=== PATIENT | male | born 1955 | race Two or more races ===

== ENCOUNTER 2017-05-22 16:39 | Inpatient (IN) | payer SELFPAY ==
[~2017-05-22] VITALS: Ht 172.7 cm; Wt 76.3 kg
[2017-05-22] MEDS ORDERED: FAMOTIDINE 20 MG/2 ML VIAL IVP ONE (16:45)
--- NOTE | 2017-05-22 17:17 | RAD ---
Portable chest, 05/22/2017: History: Fall, injury Comparison is made to a study from 02/03/2015. There is moderate chronic elevation of the right hemidiaphragm. The heart is at the upper limits of normal in size. The pulmonary vascularity is normal. No acute infiltrates are seen. There is no evidence of pleural fluid or pneumothorax. Mild spurring is present in the spine. IMPRESSION: 1. Chronic elevation of the right hemidiaphragm. 2. No acute cardiopulmonary abnormality is detected.
[2017-05-22 17:21] LABS: BASO # 0.1 x10^3/uL (0.0-0.2); BASO % 1 % (0-3); EOS % 3 % (0-3); HEMATOCRIT 41.8 % (39.0-53.0); HEMOGLOBIN 14.4 g/dL (13.0-17.5); LYMPH # 2.4 x10^3/uL (1.0-4.8); LYMPH % 44 % (24-48); MEAN CORPUSCULAR HEMOGLOBIN 32 pg (25-35); MEAN CORPUSCULAR HGB CONC 34 g/dL (31-37); MEAN CORPUSCULAR VOLUME 94 fL (79-100); MONO % 4 % (0-9); NEUT % 47 % (31-73); PLATELET COUNT 119 x10^3/uL (140-400); RED BLOOD COUNT 4.44 x10^6/uL (4.30-5.70); RED CELL DISTRIBUTION WIDTH 16.5 % (11.5-14.5); WHITE BLOOD COUNT 5.4 x10^3/uL (4.0-11.0)
[2017-05-22 17:40] LABS: CALCIUM 8.3 mg/dL (8.5-10.1); CREATININE 0.7 mg/dL (0.7-1.3); POTASSIUM 3.7 mmol/L (3.5-5.1)
[2017-05-22] MEDS ORDERED: IV NORMAL SALINE 1000ML BAG 1,000 ML IV ONE (17:45)
[2017-05-22 17:46] LABS: ALBUMIN 3.6 g/dL (3.4-5.0); ALBUMIN/GLOBULIN RATIO 0.9 (1.0-1.7); TOTAL BILIRUBIN 1.2 mg/dL (0.2-1.0); TOTAL PROTEIN 7.6 g/dL (6.4-8.2)
--- NOTE | 2017-05-22 18:30 | EKG ---
[facility] [address] [place] [address] Test Date: 2017-05-22 Test Time: 16:50:30 Pat Name: ANNABEL LILLY Department: Room: 404 Gender: M Team Assistant: : 1955 Requested By: SAM AMARO Order Number: [id number] Reading MD: Chrissie Gan Measurements Intervals [place] Rate: 106 P: 22 MS: 180 QRS: -118 QRSD: 90 T: 39 QT: 330 QTc: 440 Interpretive Statements SINUS TACHYCARDIA ABNORMAL RIGHT SUPERIOR AXIS DEVIATION QRS(T) CONTOUR ABNORMALITY CONSISTENT WITH ANTEROLATERAL INFARCT PROBABLY OLD CONSISTENT WITH INFERIOR INFARCT PROBABLY OLD Electronically Signed On 05-26-2017 11:09:57 CDT by Chrissie Gan
--- NOTE | 2017-05-22 18:43 | PHYS DOC ---
Past Medical History Past Medical History: No Pertinent History Additional Past Medical Histor: PT IS POOR HISTORIAN Past Surgical History: No Surgical History Additional Past Surgical Histo: PT IS POOR HISTORIAN Alcohol Use: Heavy Drug Use: None Adult General Chief Complaint Chief Complaint: ALCOHOL INTOXICATION HPI HPI Patient is a 62 year old homeless female who presents after being found face for the side of the road with acute alcohol intoxication and chest pain. Patient is has been drinking heavily throughout the day. Patient without any obvious evidence of head injury, trauma or deformity states chest pain is worse palpation and movement. Patient is unable to quantify the amount of alcohol he is drinking today. His alert and oriented 3, denies abdominal pain. No vomiting witnessed. No other acute symptoms or complaints. Review of Systems Review of Systems Review symptoms as per history of present illness. All other review symptoms are negative. Current Medications Current Medications Current Medications Medications (Trade) Dose Ordered Sig/Yamilex Start Time Stop Time Status Last Admin Dose Admin Famotidine (Pepcid) 20 mg 1X ONCE 05/22/17 16:45 05/22/17 16:46 DC 05/22/17 18:06 20 MG Sodium Chloride 1,000 ml @ 1,000 mls/hr 1X ONCE 05/22/17 17:45 05/22/17 18:44 05/22/17 17:35 1,000 MLS/HR Allergies Allergies Allergies Coded Allergies Type Severity Reaction Last Updated Verified No Known Drug Allergies 02/03/15 No Physical Exam Physical Exam Constitutional: Well developed, well nourished, smells of EtOH. [] HENT: Normocephalic, atraumatic, bilateral external ears normal, oropharynx moist, no oral exudates, nose normal. [] Eyes: PERRLA, EOMI, conjunctiva normal, no discharge. [] Neck: Normal range of motion, no tenderness, supple, no stridor. [] Cardiovascular:Heart rate regular rhythm, no murmur [] Lungs & Thorax: Bilateral breath sounds clear to auscultation [] Abdomen: Bowel sounds normal, soft, mild epigastric tenderness[] Skin: Warm, dry, no erythema, no rash. [] Back: No tenderness, no CVA tenderness. [] Extremities: No tenderness, no cyanosis, no clubbing, ROM intact, no edema. [] Neurologic: Alert and oriented X 3, normal motor function, normal sensory function, no focal deficits noted. [] Psychologic: Affect flat. [] Current Patient Data Vital Signs Vital Signs Date Time Temp Pulse Resp B/P (MAP) Pulse Ox O2 Delivery O2 Flow Rate FiO2 05/22/17 16:59 97.8 108 18 130/97 (108) 88 Room Air 97.8 Lab Values Laboratory Tests Test 05/22/17 17:14 White Blood Count 5.4 x10^3/uL (4.0-11.0) Red Blood Count 4.44 x10^6/uL (4.30-5.70) Hemoglobin 14.4 g/dL (13.0-17.5) Hematocrit 41.8 % (39.0-53.0) Mean Corpuscular Volume 94 fL (79-100) Mean Corpuscular Hemoglobin 32 pg (25-35) Mean Corpuscular Hemoglobin Concent 34 g/dL (31-37) Red Cell Distribution Width 16.5 % (11.5-14.5) H Platelet Count 119 x10^3/uL (140-400) L Neutrophils (%) (Auto) 47 % (31-73) Lymphocytes (%) (Auto) 44 % (24-48) Monocytes (%) (Auto) 4 % (0-9) Eosinophils (%) (Auto) 3 % (0-3) Basophils (%) (Auto) 1 % (0-3) Neutrophils # (Auto) 2.6 x10^3uL (1.8-7.7) Lymphocytes # (Auto) 2.4 x10^3/uL (1.0-4.8) Monocytes # (Auto) 0.2 x10^3/uL (0.0-1.1) Eosinophils # (Auto) 0.2 x10^3/uL (0.0-0.7) Basophils # (Auto) 0.1 x10^3/uL (0.0-0.2) Sodium Level 143 mmol/L (136-145) Potassium Level 3.7 mmol/L (3.5-5.1) Chloride Level 105 mmol/L (98-107) Carbon Dioxide Level 26 mmol/L (21-32) Anion Gap 12 (6-14) Blood Urea Nitrogen 4 mg/dL (8-26) L Creatinine 0.7 mg/dL (0.7-1.3) Estimated GFR (Cockcroft-Gault) 115.0 BUN/Creatinine Ratio 6 (6-20) Glucose Level 117 mg/dL (70-99) H Calcium Level 8.3 mg/dL (8.5-10.1) L Total Bilirubin 1.2 mg/dL (0.2-1.0) H Aspartate Amino Transferase (AST) 124 U/L (15-37) H Alanine Aminotransferase (ALT) 108 U/L (16-63) H Alkaline Phosphatase 119 U/L (46-116) H Troponin I Quantitative < 0.017 ng/mL (0.000-0.055) Total Protein 7.6 g/dL (6.4-8.2) Albumin 3.6 g/dL (3.4-5.0) Albumin/Globulin Ratio 0.9 (1.0-1.7) L Ethyl Alcohol Level 441 mg/dL (0-10) *H Laboratory Tests 05/22/17 17:14 Laboratory Tests 05/22/17 17:14 EKG EKG [EKG: Sinus tach, rate 106, no acute ST-T wave changes,: ] Radiology/Procedures Radiology/Procedures []Chest x-ray: No acute elevation of right hemidiaphragm, no acute cardiopulmonary disease per radiology report. Course & Med Decision Making Course & Med Decision Making Pertinent Labs and Imaging studies reviewed. (See chart for details) [Acute alcohol intoxication with report of chest pain. Patient's EKG, troponin are nonacute. Patient's alcohol is greater than 440. IV fluids and Pepcid given. Will admit to the hospitalist service for further evaluation and treatment.] Dragon Disclaimer Dragon Disclaimer This electronic medical record was generated, in whole or in part, using a voice recognition dictation system. Departure Departure Impression: Primary Impression: Acute alcohol intoxication Disposition: ADMITTED INPATIENT Admitting Physician: Jayna Freeman Condition: STABLE Referrals: NO PCP (PCP) SAM AMARO DO May 22, 2017 18:43
[2017-05-22] MEDS ORDERED: HALOPERIDOL LACTATE 5 MG/ML VIAL. IVP PRN (18:45)
[2017-05-22] MEDS ORDERED: ONDANSETRON PF 4 MG/2 ML VIAL. IV PRN (18:45)
[2017-05-22] MEDS ORDERED: diphenhydrAMINE 50 MG/ML VIAL IVP PRN (18:45)
[2017-05-22] MEDS ORDERED: LORazepam 1 MG TABLET PO PRN (18:45)
[2017-05-22] MEDS: IV NORMAL SALINE 1000ML BAG 1,000 ML IV SCH (19:05)
[2017-05-22 20:21] VITALS: BP 132/60
[2017-05-22] MEDS: MULTIVIT INFUSN,ADULT 4,VIT K 10 ML, THIAMINE 100 MG, FOLIC ACID 1 MG in IV NORMAL SALI... IV SCH (20:31)
[2017-05-22] MEDS: FAMOTIDINE 20 MG/2 ML VIAL IVP SCH (21:00)
[2017-05-22] MEDS ORDERED: traMADol 50 MG TABLET PO PRN (21:30)
[2017-05-22] MEDS: LIDOCAINE (700MG/PATCH) PATCH. TD SCH (22:09)
[2017-05-23] MEDS: IV NORMAL SALINE 1000ML BAG 1,000 ML IV SCH ×3 (01:18→14:38)
[2017-05-23 03:08] VITALS: BP 106/61
[2017-05-23 04:38] LABS: BASO % 1 % (0-3); EOS % 3 % (0-3); HEMATOCRIT 35.3 % (39.0-53.0); HEMOGLOBIN 12.7 g/dL (13.0-17.5); INR 1.4 (0.8-1.1); LYMPH # 1.5 x10^3/uL (1.0-4.8); LYMPH % 48 % (24-48); MEAN CORPUSCULAR HEMOGLOBIN 33 pg (25-35); MEAN CORPUSCULAR HGB CONC 36 g/dL (31-37); MEAN CORPUSCULAR VOLUME 93 fL (79-100); MONO % 6 % (0-9); NEUT % 42 % (31-73); PLATELET COUNT 77 x10^3/uL (140-400); PROTHROMBIN TIME PATIENT 16.7 SEC (11.7-14.0); RED BLOOD COUNT 3.81 x10^6/uL (4.30-5.70); RED CELL DISTRIBUTION WIDTH 16.5 % (11.5-14.5); WHITE BLOOD COUNT 3.2 x10^3/uL (4.0-11.0)
[2017-05-23 04:51] LABS: ALBUMIN/GLOBULIN RATIO 0.9 (1.0-1.7); CALCIUM 7.4 mg/dL (8.5-10.1); CREATININE 0.6 mg/dL (0.7-1.3); GFR 137.4; POTASSIUM 3.8 mmol/L (3.5-5.1); TOTAL BILIRUBIN 0.7 mg/dL (0.2-1.0); TOTAL PROTEIN 6.4 g/dL (6.4-8.2)
[2017-05-23 04:56] LABS: CHOLESTEROL/HDL RATIO 2.7
[2017-05-23 07:00] VITALS: BP 107/66
--- NOTE | 2017-05-23 08:23 | PDOC1 ---
History and Physical Date of Admission Date of Admission DATE: 05/22/17 TIME: 8pm Identification/Chief Complaint Chief Complaint LATE ENTRY, PT seen 9. Problems: History of Present Illness History of Present Illness Mr Case is a 62 year old homeless male, admit very intoxicated, story changed a few time. The ER reports he was found on side of the road with chest pain. Complains of abdomen pain to me. Drinking heavily, tequila all day, no fall, no injury, but marked abdomen pain, right chest wall to palpation, he is able to ambulate, and was eating clears at 9pm on oriented 11/01, but story gets confusing multiple times, he requests Xrays of his liver, to to "liver pain" Past Medical History Cardiovascular: No pertinent hx Pulmonary: No pertinent hx GI: No pertinent hx Heme/Onc: No pertinent hx Hepatobiliary: No pertinent hx Renal/: No pertinent hx Family History Family History: Alcohol Abuse Social History ALCOHOL: heavy Drugs: None Current Medications Current Medications Current Medications Famotidine (Pepcid) 20 mg 1X ONCE IVP Last administered on 05/22/17 18:06; Start 05/22/17 at 16:45; Stop 05/22/17 at 16:46; Status DC Sodium Chloride 1,000 ml @ 1,000 mls/hr 1X ONCE IV Last administered on 17:35; Start 05/22/17 at 17:45; Stop 05/22/17 at 18:46; Status DC Ondansetron HCl (Zofran) 4 mg PRN Q8HRS PRN IV NAUSEA/VOMITING; Start 05/22/17 at 18:45; Stop 05/23/17 at 18:44 Sodium Chloride 1,000 ml @ 150 mls/hr Q6H40M IV Last administered on 19:05; Start 05/22/17 at 18:38; Stop 05/23/17 at 18:37 Famotidine (Pepcid) 20 mg BID IVP ; Start 05/22/17 at 21:00 Multivitamins 10 ml/Thiamine HCl 100 mg/Folic Acid 1 mg/Sodium Chloride 1,011.2 ml @ 100 mls/ hr DAILY IV Last administered on 05/22/17 20:31; Start at 19:00; Stop 05/28/17 at 18:59 Folic Acid (Folic Acid) 1 mg DAILY PO ; Start 05/23/17 at 09:00 Lorazepam (Ativan) 4 mg PRN Q1HR PRN PO For CIWA 8-14; Start 05/22/17 at 18:45 Lorazepam (Ativan) 2 mg PRN Q1HR PRN IV For CIWA 8-14 Last administered on 05/22 20:32; Start 05/22/17 at 18:45 Lorazepam (Ativan) 4 mg PRN Q1HR PRN IV For CIWA 15 or greater Last administered on 05/22/17 22:08; Start 05/22/17 at 18:45 Haloperidol Lactate (Haldol) 5 mg PRN Q4HRS PRN IVP Hallucinatns,Confusn, Delirium; Start 05/22/17 at 18:45 Diphenhydramine HCl (Benadryl) 25 mg PRN Q15MIN PRN IVP EPS symptoms 2'Haldol admin; Start 05/22/17 at 18:45 Lidocaine (Lidoderm) 1 patch DAILY TD Last administered on 05/22/17 22:09; Start 05/22/17 at 21:30 Tramadol HCl (Ultram) 50 mg PRN Q6HRS PRN PO PAIN; Start 05/22/17 at 21:30 Allergies Allergies: Coded Allergies: No Known Drug Allergies (Unverified , 02/03/15) ROS General: YES: Appetite, No: Chills, Night Sweats, Fatigue, Malaise, Other PSYCHOLOGICAL ROS: No: Anxiety, Behavioral Disorder, Concentration difficultie , Decreased libido, Depression, Disorientation, Hallucinations, Hostility, Irritablity, Memory difficulties, Mood Swings, Obsessive thoughts, Other Eyes: No Blurry vision, No Decreased vision, No Double vision, No Dry eyes, No Excessive tearing, No Eye Pain, No Itchy Eyes, No Loss of vision, No Photophobia , No Scotomata, No Uses contacts, No Uses glasses, No Other HEENT: No: Heacaches, Visual Changes, Hearing change, Nasal congestion, Nasal discharge, Oral lesions, Sinus pain, Sore Throat, Epistaxis, Sneezing, Snoring, Tinnitus, Vertigo, Vocal changes, Other Respiratory: No: Cough, Hemoptysis, Orthopnea, Pleuritic Pain, Shortness of breath, SOB with excertion, Sputum Changes, Stridor, Tachypnea, Wheezing, Other Cardiovascular: No Chest Pain, No Palpitations, No Orthopnea, No Paroxysmal Noc. Dyspnea, No Edema, No Lt Headedness, No Other Gastrointestinal: Yes Nausea, Yes Abdominal Pain Genitourinary: No Dysuria, No Frequency, No Incontinence, No Hematuria, No Retention, No Discharge, No Urgency, No Pain, No Flank Pain, No Other, No , No , No , No , No , No , No Musculoskeletal: Yes Joint Stiffness, Yes Muscle Pain (abdomen), No Gait Disturbance, No Joint Pain, No Joint Swelling, No Muscular Weakness, No Pain In:, No Swelling In:, No Other Neurological: No Behavorial Changes, No Bowel/Bladder ControlChng, No Confusion , No Dizziness, No Gait Disturbance, No Headaches, No Impaired Coord/balance, No Memory Loss, No Numbness/Tingling, No Seizures, No Speech Problems, No Tremors, No Visual Changes, No Weakness, No Other Skin: No Dry Skin, No Eczema, No Hair Changes, No Lumps, No Mole Changes, No Mottling, No Nail Changes, No Pruritus, No Rash, No Skin Lesion Changes, No Other, No Acne Physical Exam General: Alert, Cooperative HEENT: Atraumatic, PERRLA Lungs: Clear to auscultation Breasts: Normal, No skin or nipple changes Abdomen: Normal bowel sounds (tender mid abdomen, muscle wall tender) Rectal Exam: not examined Extremities: No clubbing, No edema Skin: No rashes, No significant lesion Neuro: Normal tone, Sensation intact, Other (confused, intoxicated) Psych/Mental Status: Other Vitals Vitals Vital Signs Date Time Temp Pulse Resp B/P (MAP) Pulse Ox O2 Delivery O2 Flow Rate FiO2 05/23/17 07:00 98.5 72 18 107/66 (80) 92 Room Air 98.5 Labs Labs Laboratory Tests Test 05/22/17 17:14 05/23/17 03:29 White Blood Count 5.4 x10^3/uL (4.0-11.0) 3.2 x10^3/uL (4.0-11.0) Red Blood Count 4.44 x10^6/uL (4.30-5.70) 3.81 x10^6/uL (4.30-5.70) Hemoglobin 14.4 g/dL (13.0-17.5) 12.7 g/dL (13.0-17.5) Hematocrit 41.8 % (39.0-53.0) 35.3 % (39.0-53.0) Mean Corpuscular Volume 94 fL (79-100) 93 fL (79-100) Mean Corpuscular Hemoglobin 32 pg (25-35) 33 pg (25-35) Mean Corpuscular Hemoglobin Concent 34 g/dL (31-37) 36 g/dL (31-37) Red Cell Distribution Width 16.5 % (11.5-14.5) 16.5 % (11.5-14.5) Platelet Count 119 x10^3/uL (140-400) 77 x10^3/uL (140-400) Neutrophils (%) (Auto) 47 % (31-73) 42 % (31-73) Lymphocytes (%) (Auto) 44 % (24-48) 48 % (24-48) Monocytes (%) (Auto) 4 % (0-9) 6 % (0-9) Eosinophils (%) (Auto) 3 % (0-3) 3 % (0-3) Basophils (%) (Auto) 1 % (0-3) 1 % (0-3) Neutrophils # (Auto) 2.6 x10^3uL (1.8-7.7) 1.3 x10^3uL (1.8-7.7) Lymphocytes # (Auto) 2.4 x10^3/uL (1.0-4.8) 1.5 x10^3/uL (1.0-4.8) Monocytes # (Auto) 0.2 x10^3/uL (0.0-1.1) 0.2 x10^3/uL (0.0-1.1) Eosinophils # (Auto) 0.2 x10^3/uL (0.0-0.7) 0.1 x10^3/uL (0.0-0.7) Basophils # (Auto) 0.1 x10^3/uL (0.0-0.2) 0.0 x10^3/uL (0.0-0.2) Sodium Level 143 mmol/L (136-145) 147 mmol/L (136-145) Potassium Level 3.7 mmol/L (3.5-5.1) 3.8 mmol/L (3.5-5.1) Chloride Level 105 mmol/L (98-107) 110 mmol/L (98-107) Carbon Dioxide Level 26 mmol/L (21-32) 29 mmol/L (21-32) Anion Gap 12 (6-14) 8 (6-14) Blood Urea Nitrogen 4 mg/dL (8-26) 4 mg/dL (8-26) Creatinine 0.7 mg/dL (0.7-1.3) 0.6 mg/dL (0.7-1.3) Estimated GFR (Cockcroft-Gault) 115.0 137.4 BUN/Creatinine Ratio 6 (6-20) 7 (6-20) Glucose Level 117 mg/dL (70-99) 84 mg/dL (70-99) Calcium Level 8.3 mg/dL (8.5-10.1) 7.4 mg/dL (8.5-10.1) Total Bilirubin 1.2 mg/dL (0.2-1.0) 0.7 mg/dL (0.2-1.0) Aspartate Amino Transf (AST/SGOT) 124 U/L (15-37) 93 U/L (15-37) Alanine Aminotransferase (ALT/SGPT) 108 U/L (16-63) 83 U/L (16-63) Alkaline Phosphatase 119 U/L (46-116) 90 U/L (46-116) Troponin I Quantitative < 0.017 ng/mL (0.000-0.055) Total Protein 7.6 g/dL (6.4-8.2) 6.4 g/dL (6.4-8.2) Albumin 3.6 g/dL (3.4-5.0) 3.0 g/dL (3.4-5.0) Albumin/Globulin Ratio 0.9 (1.0-1.7) 0.9 (1.0-1.7) Ethyl Alcohol Level 441 mg/dL (0-10) Prothrombin Time 16.7 SEC (11.7-14.0) Prothromb Time International Ratio 1.4 (0.8-1.1) Triglycerides Level 45 mg/dL (0-150) Cholesterol Level 162 mg/dL (0-200) LDL Cholesterol, Calculated 92 mg/dL (0-100) VLDL Cholesterol, Calculated 9 mg/dL (0-40) Non-HDL Cholesterol Calculated 101 mg/dL (0-129) HDL Cholesterol 61 mg/dL (40-60) Cholesterol/HDL Ratio 2.7 Laboratory Tests Test 05/22/17 17:14 05/23/17 03:29 White Blood Count 5.4 x10^3/uL (4.0-11.0) 3.2 x10^3/uL (4.0-11.0) Red Blood Count 4.44 x10^6/uL (4.30-5.70) 3.81 x10^6/uL (4.30-5.70) Hemoglobin 14.4 g/dL (13.0-17.5) 12.7 g/dL (13.0-17.5) Hematocrit 41.8 % (39.0-53.0) 35.3 % (39.0-53.0) Mean Corpuscular Volume 94 fL (79-100) 93 fL (79-100) Mean Corpuscular Hemoglobin 32 pg (25-35) 33 pg (25-35) Mean Corpuscular Hemoglobin Concent 34 g/dL (31-37) 36 g/dL (31-37) Red Cell Distribution Width 16.5 % (11.5-14.5) 16.5 % (11.5-14.5) Platelet Count 119 x10^3/uL (140-400) 77 x10^3/uL (140-400) Neutrophils (%) (Auto) 47 % (31-73) 42 % (31-73) Lymphocytes (%) (Auto) 44 % (24-48) 48 % (24-48) Monocytes (%) (Auto) 4 % (0-9) 6 % (0-9) Eosinophils (%) (Auto) 3 % (0-3) 3 % (0-3) Basophils (%) (Auto) 1 % (0-3) 1 % (0-3) Neutrophils # (Auto) 2.6 x10^3uL (1.8-7.7) 1.3 x10^3uL (1.8-7.7) Lymphocytes # (Auto) 2.4 x10^3/uL (1.0-4.8) 1.5 x10^3/uL (1.0-4.8) Monocytes # (Auto) 0.2 x10^3/uL (0.0-1.1) 0.2 x10^3/uL (0.0-1.1) Eosinophils # (Auto) 0.2 x10^3/uL (0.0-0.7) 0.1 x10^3/uL (0.0-0.7) Basophils # (Auto) 0.1 x10^3/uL (0.0-0.2) 0.0 x10^3/uL (0.0-0.2) Sodium Level 143 mmol/L (136-145) 147 mmol/L (136-145) Potassium Level 3.7 mmol/L (3.5-5.1) 3.8 mmol/L (3.5-5.1) Chloride Level 105 mmol/L (98-107) 110 mmol/L (98-107) Carbon Dioxide Level 26 mmol/L (21-32) 29 mmol/L (21-32) Anion Gap 12 (6-14) 8 (6-14) Blood Urea Nitrogen 4 mg/dL (8-26) 4 mg/dL (8-26) Creatinine 0.7 mg/dL (0.7-1.3) 0.6 mg/dL (0.7-1.3) Estimated GFR (Cockcroft-Gault) 115.0 137.4 BUN/Creatinine Ratio 6 (6-20) 7 (6-20) Glucose Level 117 mg/dL (70-99) 84 mg/dL (70-99) Calcium Level 8.3 mg/dL (8.5-10.1) 7.4 mg/dL (8.5-10.1) Total Bilirubin 1.2 mg/dL (0.2-1.0) 0.7 mg/dL (0.2-1.0) Aspartate Amino Transf (AST/SGOT) 124 U/L (15-37) 93 U/L (15-37) Alanine Aminotransferase (ALT/SGPT) 108 U/L (16-63) 83 U/L (16-63) Alkaline Phosphatase 119 U/L (46-116) 90 U/L (46-116) Troponin I Quantitative < 0.017 ng/mL (0.000-0.055) Total Protein 7.6 g/dL (6.4-8.2) 6.4 g/dL (6.4-8.2) Albumin 3.6 g/dL (3.4-5.0) 3.0 g/dL (3.4-5.0) Albumin/Globulin Ratio 0.9 (1.0-1.7) 0.9 (1.0-1.7) Ethyl Alcohol Level 441 mg/dL (0-10) Prothrombin Time 16.7 SEC (11.7-14.0) Prothromb Time International Ratio 1.4 (0.8-1.1) Triglycerides Level 45 mg/dL (0-150) Cholesterol Level 162 mg/dL (0-200) LDL Cholesterol, Calculated 92 mg/dL (0-100) VLDL Cholesterol, Calculated 9 mg/dL (0-40) Non-HDL Cholesterol Calculated 101 mg/dL (0-129) HDL Cholesterol 61 mg/dL (40-60) Cholesterol/HDL Ratio 2.7 VTE Prophylaxis Ordered VTE Prophylaxis Devices: Yes VTE Pharmacological Prophylaxi: Yes Assessment/Plan Assessment/Plan Acute abd pain, NOS, 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
[2017-05-23] MEDS ORDERED: predniSONE 10 MG TABLET PO ONE (08:30)
[2017-05-23] MEDS: MULTIVIT INFUSN,ADULT 4,VIT K 10 ML, THIAMINE 100 MG, FOLIC ACID 1 MG in IV NORMAL SALI... IV SCH (08:44)
[2017-05-23] MEDS: LIDOCAINE (700MG/PATCH) PATCH. TD SCH (08:45)
[2017-05-23] MEDS: FAMOTIDINE 20 MG/2 ML VIAL IVP SCH (08:45)
[2017-05-23] MEDS: FOLIC ACID 1 MG TABLET. PO SCH (08:45)
--- NOTE | 2017-05-23 09:52 | EKG ---
[facility] [address] [place] [address] Test Date: 2017-05-23 Test Time: 09:50:09 Pat Name: ANNABEL LILLY Department: Room: 404 Gender: M Kst Operator: KEY : 1955 Requested By: RADHA JEAN-BAPTISTE Order Number: [id number] Reading MD: Chrissie Gan Measurements Intervals [place] Rate: 76 P: 0 NM: 184 QRS: -20 QRSD: 82 T: 24 QT: 392 QTc: 445 Interpretive Statements SINUS RHYTHM LEFTWARD AXIS QRS(T) CONTOUR ABNORMALITY CONSISTENT WITH INFERIOR INFARCT PROBABLY OLD ABNORMAL ECG Electronically Signed On 05-23-2017 10:41:24 CDT by Chrissie Gan
[2017-05-23 10:30] LABS: CKMB MASS 1.4 ng/mL (0.0-3.6)
[2017-05-23 11:07] VITALS: BP 104/63
[2017-05-23] MEDS ORDERED: hydrALAZINE 20 MG/ML VIAL. IVP PRN (11:45)
[2017-05-23] MEDS ORDERED: traMADol 50 MG TABLET PO PRN (11:45)
[2017-05-23] MEDS ORDERED: ONDANSETRON PF 4 MG/2 ML VIAL. IV PRN (11:45)
[2017-05-23] MEDS ORDERED: DOCUSATE SODIUM 100 MG CAPSULE. PO PRN (11:45)
[2017-05-23] MEDS ORDERED: ACETAMINOPHEN 325 MG TABLET. PO PRN (11:45)
--- NOTE | 2017-05-23 11:50 | PDOC ---
PROGRESS NOTES Chief Complaint Chief Complaint Acute abd pain, 2/2 fatty liver with alcoholism likely alcoholism Toxic encephalopathy with ETOH EtOH intoxication and abuse, CIWS protocol for withdrawl elevated Transaminitis 2/2 alcoholic hepatitis likely pancytopenia with alcoholism plan: gi consult abd US pending check hepatitis panel ii MILD st ELevation, repeat EKG, pretty similar to 2015, CE neg add fa, vitb1 no need lovenox given PLT low ativan prn educated no etoh History of Present Illness History of Present Illness ROS: no fever, chills, sob or chest pain no chest pain, still c/o RUQ pain denies drinking daily, but likely very often with bl hands tremor pancytopenia with alcoholism Vitals Vitals Vital Signs Date Time Temp Pulse Resp B/P (MAP) Pulse Ox O2 Delivery O2 Flow Rate FiO2 05/23/17 11:07 98.6 82 18 104/63 (77) 92 Room Air 98.6 Physical Exam General: Alert, Cooperative Heart: Regular rate, Normal S1, Normal S2 Lungs: Clear Abdomen: Normal bowel sounds (tender mid abdomen, muscle wall tender), Soft, Other (RUQ moderate tenderness) Extremities: No clubbing, No edema Skin: No rashes, No significant lesion Labs LABS Laboratory Tests Test 05/22/17 17:14 05/23/17 03:29 05/23/17 10:00 White Blood Count 5.4 x10^3/uL (4.0-11.0) 3.2 x10^3/uL (4.0-11.0) Red Blood Count 4.44 x10^6/uL (4.30-5.70) 3.81 x10^6/uL (4.30-5.70) Hemoglobin 14.4 g/dL (13.0-17.5) 12.7 g/dL (13.0-17.5) Hematocrit 41.8 % (39.0-53.0) 35.3 % (39.0-53.0) Mean Corpuscular Volume 94 fL (79-100) 93 fL (79-100) Mean Corpuscular Hemoglobin 32 pg (25-35) 33 pg (25-35) Mean Corpuscular Hemoglobin Concent 34 g/dL (31-37) 36 g/dL (31-37) Red Cell Distribution Width 16.5 % (11.5-14.5) 16.5 % (11.5-14.5) Platelet Count 119 x10^3/uL (140-400) 77 x10^3/uL (140-400) Neutrophils (%) (Auto) 47 % (31-73) 42 % (31-73) Lymphocytes (%) (Auto) 44 % (24-48) 48 % (24-48) Monocytes (%) (Auto) 4 % (0-9) 6 % (0-9) Eosinophils (%) (Auto) 3 % (0-3) 3 % (0-3) Basophils (%) (Auto) 1 % (0-3) 1 % (0-3) Neutrophils # (Auto) 2.6 x10^3uL (1.8-7.7) 1.3 x10^3uL (1.8-7.7) Lymphocytes # (Auto) 2.4 x10^3/uL (1.0-4.8) 1.5 x10^3/uL (1.0-4.8) Monocytes # (Auto) 0.2 x10^3/uL (0.0-1.1) 0.2 x10^3/uL (0.0-1.1) Eosinophils # (Auto) 0.2 x10^3/uL (0.0-0.7) 0.1 x10^3/uL (0.0-0.7) Basophils # (Auto) 0.1 x10^3/uL (0.0-0.2) 0.0 x10^3/uL (0.0-0.2) Sodium Level 143 mmol/L (136-145) 147 mmol/L (136-145) Potassium Level 3.7 mmol/L (3.5-5.1) 3.8 mmol/L (3.5-5.1) Chloride Level 105 mmol/L (98-107) 110 mmol/L (98-107) Carbon Dioxide Level 26 mmol/L (21-32) 29 mmol/L (21-32) Anion Gap 12 (6-14) 8 (6-14) Blood Urea Nitrogen 4 mg/dL (8-26) 4 mg/dL (8-26) Creatinine 0.7 mg/dL (0.7-1.3) 0.6 mg/dL (0.7-1.3) Estimated GFR (Cockcroft-Gault) 115.0 137.4 BUN/Creatinine Ratio 6 (6-20) 7 (6-20) Glucose Level 117 mg/dL (70-99) 84 mg/dL (70-99) Calcium Level 8.3 mg/dL (8.5-10.1) 7.4 mg/dL (8.5-10.1) Total Bilirubin 1.2 mg/dL (0.2-1.0) 0.7 mg/dL (0.2-1.0) Aspartate Amino Transf (AST/SGOT) 124 U/L (15-37) 93 U/L (15-37) Alanine Aminotransferase (ALT/SGPT) 108 U/L (16-63) 83 U/L (16-63) Alkaline Phosphatase 119 U/L (46-116) 90 U/L (46-116) Troponin I Quantitative < 0.017 ng/mL (0.000-0.055) < 0.017 ng/mL (0.000-0.055) Total Protein 7.6 g/dL (6.4-8.2) 6.4 g/dL (6.4-8.2) Albumin 3.6 g/dL (3.4-5.0) 3.0 g/dL (3.4-5.0) Albumin/Globulin Ratio 0.9 (1.0-1.7) 0.9 (1.0-1.7) Ethyl Alcohol Level 441 mg/dL (0-10) Prothrombin Time 16.7 SEC (11.7-14.0) Prothromb Time International Ratio 1.4 (0.8-1.1) Triglycerides Level 45 mg/dL (0-150) Cholesterol Level 162 mg/dL (0-200) LDL Cholesterol, Calculated 92 mg/dL (0-100) VLDL Cholesterol, Calculated 9 mg/dL (0-40) Non-HDL Cholesterol Calculated 101 mg/dL (0-129) HDL Cholesterol 61 mg/dL (40-60) Cholesterol/HDL Ratio 2.7 Creatine Kinase 338 U/L (39-308) Creatine Kinase MB (Mass) 1.4 ng/mL (0.0-3.6) Creatine Kinase MB Relative Index 0.4 % (0-4) Comment Review of Relevant I have reviewed the following items ana (where applicable) has been applied. Labs Laboratory Tests Test 05/22/17 17:14 05/23/17 03:29 05/23/17 10:00 White Blood Count 5.4 x10^3/uL (4.0-11.0) 3.2 x10^3/uL (4.0-11.0) Red Blood Count 4.44 x10^6/uL (4.30-5.70) 3.81 x10^6/uL (4.30-5.70) Hemoglobin 14.4 g/dL (13.0-17.5) 12.7 g/dL (13.0-17.5) Hematocrit 41.8 % (39.0-53.0) 35.3 % (39.0-53.0) Mean Corpuscular Volume 94 fL (79-100) 93 fL (79-100) Mean Corpuscular Hemoglobin 32 pg (25-35) 33 pg (25-35) Mean Corpuscular Hemoglobin Concent 34 g/dL (31-37) 36 g/dL (31-37) Red Cell Distribution Width 16.5 % (11.5-14.5) 16.5 % (11.5-14.5) Platelet Count 119 x10^3/uL (140-400) 77 x10^3/uL (140-400) Neutrophils (%) (Auto) 47 % (31-73) 42 % (31-73) Lymphocytes (%) (Auto) 44 % (24-48) 48 % (24-48) Monocytes (%) (Auto) 4 % (0-9) 6 % (0-9) Eosinophils (%) (Auto) 3 % (0-3) 3 % (0-3) Basophils (%) (Auto) 1 % (0-3) 1 % (0-3) Neutrophils # (Auto) 2.6 x10^3uL (1.8-7.7) 1.3 x10^3uL (1.8-7.7) Lymphocytes # (Auto) 2.4 x10^3/uL (1.0-4.8) 1.5 x10^3/uL (1.0-4.8) Monocytes # (Auto) 0.2 x10^3/uL (0.0-1.1) 0.2 x10^3/uL (0.0-1.1) Eosinophils # (Auto) 0.2 x10^3/uL (0.0-0.7) 0.1 x10^3/uL (0.0-0.7) Basophils # (Auto) 0.1 x10^3/uL (0.0-0.2) 0.0 x10^3/uL (0.0-0.2) Sodium Level 143 mmol/L (136-145) 147 mmol/L (136-145) Potassium Level 3.7 mmol/L (3.5-5.1) 3.8 mmol/L (3.5-5.1) Chloride Level 105 mmol/L (98-107) 110 mmol/L (98-107) Carbon Dioxide Level 26 mmol/L (21-32) 29 mmol/L (21-32) Anion Gap 12 (6-14) 8 (6-14) Blood Urea Nitrogen 4 mg/dL (8-26) 4 mg/dL (8-26) Creatinine 0.7 mg/dL (0.7-1.3) 0.6 mg/dL (0.7-1.3) Estimated GFR (Cockcroft-Gault) 115.0 137.4 BUN/Creatinine Ratio 6 (6-20) 7 (6-20) Glucose Level 117 mg/dL (70-99) 84 mg/dL (70-99) Calcium Level 8.3 mg/dL (8.5-10.1) 7.4 mg/dL (8.5-10.1) Total Bilirubin 1.2 mg/dL (0.2-1.0) 0.7 mg/dL (0.2-1.0) Aspartate Amino Transf (AST/SGOT) 124 U/L (15-37) 93 U/L (15-37) Alanine Aminotransferase (ALT/SGPT) 108 U/L (16-63) 83 U/L (16-63) Alkaline Phosphatase 119 U/L (46-116) 90 U/L (46-116) Troponin I Quantitative < 0.017 ng/mL (0.000-0.055) < 0.017 ng/mL (0.000-0.055) Total Protein 7.6 g/dL (6.4-8.2) 6.4 g/dL (6.4-8.2) Albumin 3.6 g/dL (3.4-5.0) 3.0 g/dL (3.4-5.0) Albumin/Globulin Ratio 0.9 (1.0-1.7) 0.9 (1.0-1.7) Ethyl Alcohol Level 441 mg/dL (0-10) Prothrombin Time 16.7 SEC (11.7-14.0) Prothromb Time International Ratio 1.4 (0.8-1.1) Triglycerides Level 45 mg/dL (0-150) Cholesterol Level 162 mg/dL (0-200) LDL Cholesterol, Calculated 92 mg/dL (0-100) VLDL Cholesterol, Calculated 9 mg/dL (0-40) Non-HDL Cholesterol Calculated 101 mg/dL (0-129) HDL Cholesterol 61 mg/dL (40-60) Cholesterol/HDL Ratio 2.7 Creatine Kinase 338 U/L (39-308) Creatine Kinase MB (Mass) 1.4 ng/mL (0.0-3.6) Creatine Kinase MB Relative Index 0.4 % (0-4) Laboratory Tests Test 05/22/17 17:14 05/23/17 03:29 05/23/17 10:00 White Blood Count 5.4 x10^3/uL (4.0-11.0) 3.2 x10^3/uL (4.0-11.0) Red Blood Count 4.44 x10^6/uL (4.30-5.70) 3.81 x10^6/uL (4.30-5.70) Hemoglobin 14.4 g/dL (13.0-17.5) 12.7 g/dL (13.0-17.5) Hematocrit 41.8 % (39.0-53.0) 35.3 % (39.0-53.0) Mean Corpuscular Volume 94 fL (79-100) 93 fL (79-100) Mean Corpuscular Hemoglobin 32 pg (25-35) 33 pg (25-35) Mean Corpuscular Hemoglobin Concent 34 g/dL (31-37) 36 g/dL (31-37) Red Cell Distribution Width 16.5 % (11.5-14.5) 16.5 % (11.5-14.5) Platelet Count 119 x10^3/uL (140-400) 77 x10^3/uL (140-400) Neutrophils (%) (Auto) 47 % (31-73) 42 % (31-73) Lymphocytes (%) (Auto) 44 % (24-48) 48 % (24-48) Monocytes (%) (Auto) 4 % (0-9) 6 % (0-9) Eosinophils (%) (Auto) 3 % (0-3) 3 % (0-3) Basophils (%) (Auto) 1 % (0-3) 1 % (0-3) Neutrophils # (Auto) 2.6 x10^3uL (1.8-7.7) 1.3 x10^3uL (1.8-7.7) Lymphocytes # (Auto) 2.4 x10^3/uL (1.0-4.8) 1.5 x10^3/uL (1.0-4.8) Monocytes # (Auto) 0.2 x10^3/uL (0.0-1.1) 0.2 x10^3/uL (0.0-1.1) Eosinophils # (Auto) 0.2 x10^3/uL (0.0-0.7) 0.1 x10^3/uL (0.0-0.7) Basophils # (Auto) 0.1 x10^3/uL (0.0-0.2) 0.0 x10^3/uL (0.0-0.2) Sodium Level 143 mmol/L (136-145) 147 mmol/L (136-145) Potassium Level 3.7 mmol/L (3.5-5.1) 3.8 mmol/L (3.5-5.1) Chloride Level 105 mmol/L (98-107) 110 mmol/L (98-107) Carbon Dioxide Level 26 mmol/L (21-32) 29 mmol/L (21-32) Anion Gap 12 (6-14) 8 (6-14) Blood Urea Nitrogen 4 mg/dL (8-26) 4 mg/dL (8-26) Creatinine 0.7 mg/dL (0.7-1.3) 0.6 mg/dL (0.7-1.3) Estimated GFR (Cockcroft-Gault) 115.0 137.4 BUN/Creatinine Ratio 6 (6-20) 7 (6-20) Glucose Level 117 mg/dL (70-99) 84 mg/dL (70-99) Calcium Level 8.3 mg/dL (8.5-10.1) 7.4 mg/dL (8.5-10.1) Total Bilirubin 1.2 mg/dL (0.2-1.0) 0.7 mg/dL (0.2-1.0) Aspartate Amino Transf (AST/SGOT) 124 U/L (15-37) 93 U/L (15-37) Alanine Aminotransferase (ALT/SGPT) 108 U/L (16-63) 83 U/L (16-63) Alkaline Phosphatase 119 U/L (46-116) 90 U/L (46-116) Troponin I Quantitative < 0.017 ng/mL (0.000-0.055) < 0.017 ng/mL (0.000-0.055) Total Protein 7.6 g/dL (6.4-8.2) 6.4 g/dL (6.4-8.2) Albumin 3.6 g/dL (3.4-5.0) 3.0 g/dL (3.4-5.0) Albumin/Globulin Ratio 0.9 (1.0-1.7) 0.9 (1.0-1.7) Ethyl Alcohol Level 441 mg/dL (0-10) Prothrombin Time 16.7 SEC (11.7-14.0) Prothromb Time International Ratio 1.4 (0.8-1.1) Triglycerides Level 45 mg/dL (0-150) Cholesterol Level 162 mg/dL (0-200) LDL Cholesterol, Calculated 92 mg/dL (0-100) VLDL Cholesterol, Calculated 9 mg/dL (0-40) Non-HDL Cholesterol Calculated 101 mg/dL (0-129) HDL Cholesterol 61 mg/dL (40-60) Cholesterol/HDL Ratio 2.7 Creatine Kinase 338 U/L (39-308) Creatine Kinase MB (Mass) 1.4 ng/mL (0.0-3.6) Creatine Kinase MB Relative Index 0.4 % (0-4) Medications Current Medications Famotidine (Pepcid) 20 mg 1X ONCE IVP Last administered on 05/22/17 18:06; Start 05/22/17 at 16:45; Stop 05/22/17 at 16:46; Status DC Sodium Chloride 1,000 ml @ 1,000 mls/hr 1X ONCE IV Last administered on 17:35; Start 05/22/17 at 17:45; Stop 05/22/17 at 18:46; Status DC Ondansetron HCl (Zofran) 4 mg PRN Q8HRS PRN IV NAUSEA/VOMITING; Start 05/22/17 at 18:45; Stop 05/23/17 at 18:44 Sodium Chloride 1,000 ml @ 150 mls/hr Q6H40M IV Last administered on 19:05; Start 05/22/17 at 18:38; Stop 05/23/17 at 18:37 Famotidine (Pepcid) 20 mg BID IVP Last administered on 05/23/17 08:45; Start 05/22/17 at 21:00 Multivitamins 10 ml/Thiamine HCl 100 mg/Folic Acid 1 mg/Sodium Chloride 1,011.2 ml @ 100 mls/ hr DAILY IV Last administered on 05/23/17 08:44; Start at 19:00; Stop 05/28/17 at 18:59 Folic Acid (Folic Acid) 1 mg DAILY PO Last administered on 05/23/17 08:45; Start 05/23/17 at 09:00 Lorazepam (Ativan) 4 mg PRN Q1HR PRN PO For CIWA 8-14; Start 05/22/17 at 18:45 Lorazepam (Ativan) 2 mg PRN Q1HR PRN IV For CIWA 8-14 Last administered on 05/22 20:32; Start 05/22/17 at 18:45 Lorazepam (Ativan) 4 mg PRN Q1HR PRN IV For CIWA 15 or greater Last administered on 05/22/17 22:08; Start 05/22/17 at 18:45 Haloperidol Lactate (Haldol) 5 mg PRN Q4HRS PRN IVP Hallucinatns,Confusn, Delirium; Start 05/22/17 at 18:45 Diphenhydramine HCl (Benadryl) 25 mg PRN Q15MIN PRN IVP EPS symptoms 2'Haldol admin; Start 05/22/17 at 18:45 Lidocaine (Lidoderm) 1 patch DAILY TD Last administered on 05/23/17 08:45; Start 05/22/17 at 21:30 Tramadol HCl (Ultram) 50 mg PRN Q6HRS PRN PO PAIN; Start 05/22/17 at 21:30 Prednisone (Prednisone) 40 mg 1X ONCE PO Last administered on 05/23/17t 08:45 ; Start 05/23/17 at 08:30; Stop 05/23/17 at 08:31; Status DC Vitals/I & O Vital Sign - Last 24 Hours 05/22/17 05/22/17 05/22/17 05/22/17 16:51 16:59 17:00 17:30 Temp 97.8 97.8 Pulse 110 108 104 94 Resp 20 18 B/P (MAP) 130/97 (108) 130/97 (108) 124/69 (87) 136/82 (100) Pulse Ox 88 93 O2 Delivery Room Air 05/22/17 05/22/17 05/22/17 05/22/17 18:00 18:30 19:00 19:30 Pulse 80 74 82 80 B/P (MAP) 129/83 (98) 115/74 (88) 123/66 (85) 127/76 (93) Pulse Ox 94 05/22/17 05/22/17 05/23/17 05/23/17 20:06 20:21 03:08 07:00 Temp 98.5 98.4 98.5 98.5 98.4 98.5 Pulse 74 89 72 Resp 19 20 18 B/P (MAP) 132/60 (84) 106/61 (76) 107/66 (80) Pulse Ox 92 92 92 O2 Delivery Room Air Room Air Room Air Room Air 05/23/17 05/23/17 07:45 11:07 Temp 98.6 98.6 Pulse 82 Resp 18 B/P (MAP) 104/63 (77) Pulse Ox 92 O2 Delivery Room Air Room Air RADHA JEAN-BAPTISTE MD May 23, 2017 11:50
--- NOTE | 2017-05-23 11:51 | RAD ---
Abdominal ultrasound without comparison for fatty liver, abdominal pain, elevated liver enzymes, detox, patient was uncooperative, repeatedly grabbing the probe and the technologist's hand, and would not hold his breath. Technique and findings: Real-time grayscale and color and spectral Doppler evaluation of the abdominal organs is performed. The liver is notable for coarsening of the echotexture diffusely, with some peripheral nodularity. Findings may reflect cirrhosis. Visualization of the right lobe of the liver is quite poor due to the aforementioned factors. The liver measures 13.5 cm in the right lobe. Portal vein flow is hepatopedal. Visualized portions of the pancreas including the head and proximal body are grossly unremarkable. Visualization of the distal body and tail is limited. The IVC and aorta are largely obscured, though the mid and distal aorta appear nonaneurysmal. The gallbladder is fluid distended, and there is borderline gallbladder wall thickening without pericholecystic fluid. No sonographic Soler sign was documented by the technologist. No definite shadowing calculi or sludge is evident. The common bile duct is normal in diameter measuring 3 mm. The spleen is enlarged measuring 14.5 cm in greatest dimension. No focal parenchymal abnormalities are identified. The right kidney measures 12.2 x 6.4 x 6.8 cm and the left measures 12.1 x 6.0 x 5.4 cm. No hydronephrosis or perinephric fluid around either kidney. No focal parenchymal abnormalities. No free or loculated fluid collections are seen within the abdomen. Impression: 1. Limited evaluation of several abdominal organs due to the several aforementioned factors. Findings do suggest hepatic cirrhosis with splenomegaly suggestive of portal hypertension.
[2017-05-23] MEDS ORDERED: ENOXAPARIN 40 MG/0.4 ML SYRINGE. SQ SCH (12:00)
--- NOTE | 2017-05-23 13:02 | PDOC2 ---
GI CONSULT Reason For Consult: Abd pain, alcoholism HPI: HPI: 62 y/o male admitted through ER yesterday, other notes say he was found on the side of the road, intoxicated and w/ chest pain. He speaks a little Croatian, but RN Mercedes helps translate in [place]ian. Has been a little confused. Tells me 40 year h/o RUQ pain, possibly related to falling off a donkey onto a rock. He has complained of abd pain but now says it's not any worse than usual. It's worse after eating greasy foods like pork and sometimes associated w/ n/v. Had some loose stools earlier this week. Denies hematemesis, hematochezia, and melena. He drinks 3-4 beers, but not daily. Previous evaluation (unclear) showed "only a tiny spot on his liver." No previous EGD or colonoscopy. Denies other PMH, no daily medication use of any kind. Labs signficant for pancytopenia (WBC 3.2, Hgb 12.7, plt 77), INR 1.4, bili 0.7 (from 1.2), AST 93 (from 124), ALT 83 (from 108), and Alk Phos 90 (from 119). Ethyl alcohol level was 441. CXR showed CXR 05/22/17 chronic elevation of the right hemidiaphragm. Abd US was difficult as pt was not cooperative but was suggestive of cirrhosis and splenomegaly, possible portal hypertension. Received prednisone 40mg PO x 1. On famotidine QHS. PMH: PMH: per HPI FH: Family History: No pertinent hx Social History: Smoke: No ALCOHOL: heavy Drugs: None ROS: GEN: Denies fevers, chills, sweats HEENT: Denies blurred vision, sore throat CV: Denies chest pain RESP: Denies shortness of air, cough GI: Per HPI : Denies hematuria, dysuria ENDO: Denies weight changes NEURO: Denies confusion, dizziness MSK: Denies weakness, joint pain/swelling SKIN: Denies jaundice, pruritus Vitals: Vitals: Vital Signs Date Time Temp Pulse Resp B/P (MAP) Pulse Ox O2 Delivery O2 Flow Rate FiO2 05/23/17 11:07 98.6 82 18 104/63 (77) 92 Room Air 98.6 Labs: Labs: Laboratory Tests Test 9/21/17 17:14 05/23/17 03:29 05/23/17 10:00 White Blood Count 5.4 x10^3/uL (4.0-11.0) 3.2 x10^3/uL (4.0-11.0) Red Blood Count 4.44 x10^6/uL (4.30-5.70) 3.81 x10^6/uL (4.30-5.70) Hemoglobin 14.4 g/dL (13.0-17.5) 12.7 g/dL (13.0-17.5) Hematocrit 41.8 % (39.0-53.0) 35.3 % (39.0-53.0) Mean Corpuscular Volume 94 fL (79-100) 93 fL (79-100) Mean Corpuscular Hemoglobin 32 pg (25-35) 33 pg (25-35) Mean Corpuscular Hemoglobin Concent 34 g/dL (31-37) 36 g/dL (31-37) Red Cell Distribution Width 16.5 % (11.5-14.5) 16.5 % (11.5-14.5) Platelet Count 119 x10^3/uL (140-400) 77 x10^3/uL (140-400) Neutrophils (%) (Auto) 47 % (31-73) 42 % (31-73) Lymphocytes (%) (Auto) 44 % (24-48) 48 % (24-48) Monocytes (%) (Auto) 4 % (0-9) 6 % (0-9) Eosinophils (%) (Auto) 3 % (0-3) 3 % (0-3) Basophils (%) (Auto) 1 % (0-3) 1 % (0-3) Neutrophils # (Auto) 2.6 x10^3uL (1.8-7.7) 1.3 x10^3uL (1.8-7.7) Lymphocytes # (Auto) 2.4 x10^3/uL (1.0-4.8) 1.5 x10^3/uL (1.0-4.8) Monocytes # (Auto) 0.2 x10^3/uL (0.0-1.1) 0.2 x10^3/uL (0.0-1.1) Eosinophils # (Auto) 0.2 x10^3/uL (0.0-0.7) 0.1 x10^3/uL (0.0-0.7) Basophils # (Auto) 0.1 x10^3/uL (0.0-0.2) 0.0 x10^3/uL (0.0-0.2) Sodium Level 143 mmol/L (136-145) 147 mmol/L (136-145) Potassium Level 3.7 mmol/L (3.5-5.1) 3.8 mmol/L (3.5-5.1) Chloride Level 105 mmol/L (98-107) 110 mmol/L (98-107) Carbon Dioxide Level 26 mmol/L (21-32) 29 mmol/L (21-32) Anion Gap 12 (6-14) 8 (6-14) Blood Urea Nitrogen 4 mg/dL (8-26) 4 mg/dL (8-26) Creatinine 0.7 mg/dL (0.7-1.3) 0.6 mg/dL (0.7-1.3) Estimated GFR (Cockcroft-Gault) 115.0 137.4 BUN/Creatinine Ratio 6 (6-20) 7 (6-20) Glucose Level 117 mg/dL (70-99) 84 mg/dL (70-99) Calcium Level 8.3 mg/dL (8.5-10.1) 7.4 mg/dL (8.5-10.1) Total Bilirubin 1.2 mg/dL (0.2-1.0) 0.7 mg/dL (0.2-1.0) Aspartate Amino Transf (AST/SGOT) 124 U/L (15-37) 93 U/L (15-37) Alanine Aminotransferase (ALT/SGPT) 108 U/L (16-63) 83 U/L (16-63) Alkaline Phosphatase 119 U/L (46-116) 90 U/L (46-116) Troponin I Quantitative < 0.017 ng/mL (0.000-0.055) < 0.017 ng/mL (0.000-0.055) Total Protein 7.6 g/dL (6.4-8.2) 6.4 g/dL (6.4-8.2) Albumin 3.6 g/dL (3.4-5.0) 3.0 g/dL (3.4-5.0) Albumin/Globulin Ratio 0.9 (1.0-1.7) 0.9 (1.0-1.7) Ethyl Alcohol Level 441 mg/dL (0-10) Prothrombin Time 16.7 SEC (11.7-14.0) Prothromb Time International Ratio 1.4 (0.8-1.1) Triglycerides Level 45 mg/dL (0-150) Cholesterol Level 162 mg/dL (0-200) LDL Cholesterol, Calculated 92 mg/dL (0-100) VLDL Cholesterol, Calculated 9 mg/dL (0-40) Non-HDL Cholesterol Calculated 101 mg/dL (0-129) HDL Cholesterol 61 mg/dL (40-60) Cholesterol/HDL Ratio 2.7 Creatine Kinase 338 U/L (39-308) Creatine Kinase MB (Mass) 1.4 ng/mL (0.0-3.6) Creatine Kinase MB Relative Index 0.4 % (0-4) Allergies: Coded Allergies: No Known Drug Allergies (Unverified , 02/03/15) Medications: Current Medications Medications (Trade) Dose Ordered Sig/Yamilex Route PRN Reason Start Time Stop Time Status Last Admin Dose Admin Famotidine (Pepcid) 20 mg 1X ONCE IVP 05/22/17 16:45 05/22/17 16:46 DC 05/22/17 18:06 Sodium Chloride 1,000 ml @ 1,000 mls/hr 1X ONCE IV 05/22/17 17:45 05/22/17 18:46 DC 05/22/17 17:35 Sodium Chloride 1,000 ml @ 150 mls/hr Q6H40M IV 05/22/17 18:38 05/23/17 18:37 05/22/17 19:05 Famotidine (Pepcid) 20 mg BID IVP 05/22/17 21:00 05/23/17 11:46 DC 05/23/17 08:45 Multivitamins 10 ml/Thiamine HCl 100 mg/Folic Acid 1 mg/Sodium Chloride 1,011.2 ml @ 100 mls/ hr DAILY IV 05/22/17 19:00 05/28/17 18:59 05/23/17 08:44 Folic Acid (Folic Acid) 1 mg DAILY PO 05/23/17 09:00 05/23/17 08:45 Lorazepam (Ativan) 2 mg PRN Q1HR PRN IV For CIWA 8-14 05/22/17 18:45 05/22/17 20:32 Lorazepam (Ativan) 4 mg PRN Q1HR PRN IV For CIWA 15 or greater 05/22/17 18:45 05/22/17 22:08 Lidocaine (Lidoderm) 1 patch DAILY TD 05/22/17 21:30 05/23/17 08:45 Prednisone (Prednisone) 40 mg 1X ONCE PO 05/23/17 08:30 05/23/17 08:31 DC 05/23/17 08:45 Imaging: Imaging: CXR 05/22/17 IMPRESSION: 1. Chronic elevation of the right hemidiaphragm. 2. No acute cardiopulmonary abnormality is detected. Abd US 05/23/17 Patient was uncooperative, repeatedly grabbing the probe and the technologist's hand, and would not hold his breath. The liver is notable for coarsening of the echotexture diffusely, with some peripheral nodularity. Findings may reflect cirrhosis. Visualization of the right lobe of the liver is quite poor due to the aforementioned factors. The liver measures 13.5 cm in the right lobe. Portal vein flow is hepatopedal. Visualized portions of the pancreas including the head and proximal body are grossly unremarkable. Visualization of the distal body and tail is limited. The IVC and aorta are largely obscured, though the mid and distal aorta appear nonaneurysmal. The gallbladder is fluid distended, and there is borderline gallbladder wall thickening without pericholecystic fluid. No sonographic Soler sign was documented by the technologist. No definite shadowing calculi or sludge is evident. The common bile duct is normal in diameter measuring 3 mm. The spleen is enlarged measuring 14.5 cm in greatest dimension. No focal parenchymal abnormalities are identified. The right kidney measures 12.2 x 6.4 x 6.8 cm and the left measures 12.1 x 6.0 x 5.4 cm. No hydronephrosis or perinephric fluid around either kidney. No focal parenchymal abnormalities. No free or loculated fluid collections are seen within the abdomen. Impression: 1. Limited evaluation of several abdominal organs due to the several aforementioned factors. Findings do suggest hepatic cirrhosis with splenomegaly suggestive of portal hypertension. PE: GEN: NAD, a bit tremulous sitting up in bed HEENT: Atraumatic, PERRL LUNGS: CTAB HEART: RRR +murm ABD: NABS, S/ND, quite tender RUQ, less so epigastrium EXTREMITY: No edema SKIN: No rashes, no jaundice NEURO/PSYCH: awake/alert OTHER: lunch tray empty A/P: A/P: Chronic RUQ pain Alcoholism, probably cirrhosis Pancytopenia Transaminitis - improved -received prednisone x 1 CRC screen -no previous colonoscopy -- Continue withdrawal precautions. Ideally would stop drinking. ZARA GERBER May 23, 2017 13:02
[2017-05-23 15:00] VITALS: BP 110/59
[2017-05-23 19:00] VITALS: BP 147/72
[2017-05-23] MEDS: FAMOTIDINE 20 MG TABLET. PO SCH (20:17)
[2017-05-23 23:00] VITALS: BP 143/78
[2017-05-24 03:00] VITALS: BP 137/70
[2017-05-24 04:49] LABS: BASO % 0 % (0-3); EOS % 1 % (0-3); HEMATOCRIT 34.6 % (39.0-53.0); HEMOGLOBIN 12.3 g/dL (13.0-17.5); LYMPH # 1.2 x10^3/uL (1.0-4.8); LYMPH % 36 % (24-48); MEAN CORPUSCULAR HEMOGLOBIN 33 pg (25-35); MEAN CORPUSCULAR HGB CONC 36 g/dL (31-37); MEAN CORPUSCULAR VOLUME 93 fL (79-100); MONO % 7 % (0-9); NEUT % 56 % (31-73); PLATELET COUNT 54 x10^3/uL (140-400); RED BLOOD COUNT 3.72 x10^6/uL (4.30-5.70); RED CELL DISTRIBUTION WIDTH 16.1 % (11.5-14.5); WHITE BLOOD COUNT 3.2 x10^3/uL (4.0-11.0)
[2017-05-24 05:27] LABS: ALBUMIN 2.8 g/dL (3.4-5.0); CALCIUM 7.2 mg/dL (8.5-10.1); CREATININE 0.6 mg/dL (0.7-1.3); DIRECT BILIRUBIN 0.3 mg/dL (0.0-0.2); GFR 137.4; POTASSIUM 3.4 mmol/L (3.5-5.1); TOTAL BILIRUBIN 0.9 mg/dL (0.2-1.0); TOTAL PROTEIN 6.5 g/dL (6.4-8.2)
[2017-05-24 07:00] VITALS: BP 121/71
[2017-05-24] MEDS ORDERED: PNEUMOCOCCAL VAX SCREEN BY RX. MC ONE (09:00)
[2017-05-24] MEDS ORDERED: FLU VACC QS2017-18 (36MOS+)/PF 0.5 ML SYRINGE. VAX IM ONE (09:00)
[2017-05-24] MEDS ORDERED: PNEUMOC CONJ VACC 23-VALENT 0.5 ML VIAL. VAX IM ONE (09:00)
[2017-05-24] MEDS ORDERED: INFLUENZA VAX SCREEN BY RX. MC ONE (09:00)
[2017-05-24] MEDS: MULTIVIT INFUSN,ADULT 4,VIT K 10 ML, THIAMINE 100 MG, FOLIC ACID 1 MG in IV NORMAL SALI... IV SCH (09:06)
[2017-05-24] MEDS: FOLIC ACID 1 MG TABLET. PO SCH (09:06)
[2017-05-24] MEDS: LIDOCAINE (700MG/PATCH) PATCH. TD SCH (09:11)
[2017-05-24 11:00] VITALS: BP 144/86
[2017-05-24] MEDS ORDERED: POTASSIUM CHLORIDE 20 MEQ TABLET.ER. PO ONE (11:15)
[2017-05-24 11:49] LABS: MAGNESIUM 1.7 mg/dL (1.8-2.4); PHOSPHORUS 2.4 mg/dL (2.6-4.7)
--- NOTE | 2017-05-24 13:31 | PDOC ---
PROGRESS NOTES Chief Complaint Chief Complaint Acute abd pain, 2/2 fatty liver, cirrhosis, with alcoholism likely alcoholism Toxic encephalopathy with ETOH EtOH intoxication and abuse, CIWS protocol for withdrawl elevated Transaminitis 2/2 alcoholic hepatitis likely pancytopenia with alcoholism plan: gi consulted abd US showed likely cirrhosis with portal hypertention check hepatitis panel ii MILD st ELevation, repeat EKG, pretty similar to 2015, CE neg add fa, vitb1 no need lovenox given PLT low ativan prn educated no etoh replete K, MAG, SHEBA dc tmr PTOT History of Present Illness History of Present Illness ROS: no fever, chills, sob or chest pain no chest pain, still c/o RUQ pain denies drinking daily, but likely very often with bl hands tremor pancytopenia with alcoholism low k, mag, sheba Vitals Vitals Vital Signs Date Time Temp Pulse Resp B/P (MAP) Pulse Ox O2 Delivery O2 Flow Rate FiO2 05/24/17 11:00 97.4 60 22 144/86 (105) 96 97.4 05/24/17 08:00 Room Air Physical Exam General: Alert, Cooperative Heart: Regular rate, Normal S1, Normal S2 Lungs: Clear Abdomen: Normal bowel sounds (tender mid abdomen, muscle wall tender), Soft, Other (RUQ moderate tenderness) Extremities: No clubbing, No edema Skin: No rashes, No significant lesion Labs LABS Laboratory Tests Test 05/24/17 04:00 White Blood Count 3.2 x10^3/uL (4.0-11.0) Red Blood Count 3.72 x10^6/uL (4.30-5.70) Hemoglobin 12.3 g/dL (13.0-17.5) Hematocrit 34.6 % (39.0-53.0) Mean Corpuscular Volume 93 fL (79-100) Mean Corpuscular Hemoglobin 33 pg (25-35) Mean Corpuscular Hemoglobin Concent 36 g/dL (31-37) Red Cell Distribution Width 16.1 % (11.5-14.5) Platelet Count 54 x10^3/uL (140-400) Neutrophils (%) (Auto) 56 % (31-73) Lymphocytes (%) (Auto) 36 % (24-48) Monocytes (%) (Auto) 7 % (0-9) Eosinophils (%) (Auto) 1 % (0-3) Basophils (%) (Auto) 0 % (0-3) Neutrophils # (Auto) 1.8 x10^3uL (1.8-7.7) Lymphocytes # (Auto) 1.2 x10^3/uL (1.0-4.8) Monocytes # (Auto) 0.2 x10^3/uL (0.0-1.1) Eosinophils # (Auto) 0.0 x10^3/uL (0.0-0.7) Basophils # (Auto) 0.0 x10^3/uL (0.0-0.2) Sodium Level 142 mmol/L (136-145) Potassium Level 3.4 mmol/L (3.5-5.1) Chloride Level 108 mmol/L (98-107) Carbon Dioxide Level 27 mmol/L (21-32) Anion Gap 7 (6-14) Blood Urea Nitrogen 8 mg/dL (8-26) Creatinine 0.6 mg/dL (0.7-1.3) Estimated GFR (Cockcroft-Gault) 137.4 Glucose Level 97 mg/dL (70-99) Calcium Level 7.2 mg/dL (8.5-10.1) Phosphorus Level 2.4 mg/dL (2.6-4.7) Magnesium Level 1.7 mg/dL (1.8-2.4) Total Bilirubin 0.9 mg/dL (0.2-1.0) Direct Bilirubin 0.3 mg/dL (0.0-0.2) Aspartate Amino Transf (AST/SGOT) 76 U/L (15-37) Alanine Aminotransferase (ALT/SGPT) 77 U/L (16-63) Alkaline Phosphatase 131 U/L (46-116) Total Protein 6.5 g/dL (6.4-8.2) Albumin 2.8 g/dL (3.4-5.0) Comment Review of Relevant I have reviewed the following items ana (where applicable) has been applied. Labs Laboratory Tests Test 05/22/17 17:14 05/23/17 03:29 05/23/17 10:00 05/24/17 04:00 White Blood Count 5.4 x10^3/uL (4.0-11.0) 3.2 x10^3/uL (4.0-11.0) 3.2 x10^3/uL (4.0-11.0) Red Blood Count 4.44 x10^6/uL (4.30-5.70) 3.81 x10^6/uL (4.30-5.70) 3.72 x10^6/uL (4.30-5.70) Hemoglobin 14.4 g/dL (13.0-17.5) 12.7 g/dL (13.0-17.5) 12.3 g/dL (13.0-17.5) Hematocrit 41.8 % (39.0-53.0) 35.3 % (39.0-53.0) 34.6 % (39.0-53.0) Mean Corpuscular Volume 94 fL (79-100) 93 fL (79-100) 93 fL (79-100) Mean Corpuscular Hemoglobin 32 pg (25-35) 33 pg (25-35) 33 pg (25-35) Mean Corpuscular Hemoglobin Concent 34 g/dL (31-37) 36 g/dL (31-37) 36 g/dL (31-37) Red Cell Distribution Width 16.5 % (11.5-14.5) 16.5 % (11.5-14.5) 16.1 % (11.5-14.5) Platelet Count 119 x10^3/uL (140-400) 77 x10^3/uL (140-400) 54 x10^3/uL (140-400) Neutrophils (%) (Auto) 47 % (31-73) 42 % (31-73) 56 % (31-73) Lymphocytes (%) (Auto) 44 % (24-48) 48 % (24-48) 36 % (24-48) Monocytes (%) (Auto) 4 % (0-9) 6 % (0-9) 7 % (0-9) Eosinophils (%) (Auto) 3 % (0-3) 3 % (0-3) 1 % (0-3) Basophils (%) (Auto) 1 % (0-3) 1 % (0-3) 0 % (0-3) Neutrophils # (Auto) 2.6 x10^3uL (1.8-7.7) 1.3 x10^3uL (1.8-7.7) 1.8 x10^3uL (1.8-7.7) Lymphocytes # (Auto) 2.4 x10^3/uL (1.0-4.8) 1.5 x10^3/uL (1.0-4.8) 1.2 x10^3/uL (1.0-4.8) Monocytes # (Auto) 0.2 x10^3/uL (0.0-1.1) 0.2 x10^3/uL (0.0-1.1) 0.2 x10^3/uL (0.0-1.1) Eosinophils # (Auto) 0.2 x10^3/uL (0.0-0.7) 0.1 x10^3/uL (0.0-0.7) 0.0 x10^3/uL (0.0-0.7) Basophils # (Auto) 0.1 x10^3/uL (0.0-0.2) 0.0 x10^3/uL (0.0-0.2) 0.0 x10^3/uL (0.0-0.2) Sodium Level 143 mmol/L (136-145) 147 mmol/L (136-145) 142 mmol/L (136-145) Potassium Level 3.7 mmol/L (3.5-5.1) 3.8 mmol/L (3.5-5.1) 3.4 mmol/L (3.5-5.1) Chloride Level 105 mmol/L (98-107) 110 mmol/L (98-107) 108 mmol/L (98-107) Carbon Dioxide Level 26 mmol/L (21-32) 29 mmol/L (21-32) 27 mmol/L (21-32) Anion Gap 12 (6-14) 8 (6-14) 7 (6-14) Blood Urea Nitrogen 4 mg/dL (8-26) 4 mg/dL (8-26) 8 mg/dL (8-26) Creatinine 0.7 mg/dL (0.7-1.3) 0.6 mg/dL (0.7-1.3) 0.6 mg/dL (0.7-1.3) Estimated GFR (Cockcroft-Gault) 115.0 137.4 137.4 BUN/Creatinine Ratio 6 (6-20) 7 (6-20) Glucose Level 117 mg/dL (70-99) 84 mg/dL (70-99) 97 mg/dL (70-99) Calcium Level 8.3 mg/dL (8.5-10.1) 7.4 mg/dL (8.5-10.1) 7.2 mg/dL (8.5-10.1) Total Bilirubin 1.2 mg/dL (0.2-1.0) 0.7 mg/dL (0.2-1.0) 0.9 mg/dL (0.2-1.0) Aspartate Amino Transf (AST/SGOT) 124 U/L (15-37) 93 U/L (15-37) 76 U/L (15-37) Alanine Aminotransferase (ALT/SGPT) 108 U/L (16-63) 83 U/L (16-63) 77 U/L (16-63) Alkaline Phosphatase 119 U/L (46-116) 90 U/L (46-116) 131 U/L (46-116) Troponin I Quantitative < 0.017 ng/mL (0.000-0.055) < 0.017 ng/mL (0.000-0.055) Total Protein 7.6 g/dL (6.4-8.2) 6.4 g/dL (6.4-8.2) 6.5 g/dL (6.4-8.2) Albumin 3.6 g/dL (3.4-5.0) 3.0 g/dL (3.4-5.0) 2.8 g/dL (3.4-5.0) Albumin/Globulin Ratio 0.9 (1.0-1.7) 0.9 (1.0-1.7) Ethyl Alcohol Level 441 mg/dL (0-10) Prothrombin Time 16.7 SEC (11.7-14.0) Prothromb Time International Ratio 1.4 (0.8-1.1) Triglycerides Level 45 mg/dL (0-150) Cholesterol Level 162 mg/dL (0-200) LDL Cholesterol, Calculated 92 mg/dL (0-100) VLDL Cholesterol, Calculated 9 mg/dL (0-40) Non-HDL Cholesterol Calculated 101 mg/dL (0-129) HDL Cholesterol 61 mg/dL (40-60) Cholesterol/HDL Ratio 2.7 Creatine Kinase 338 U/L (39-308) Creatine Kinase MB (Mass) 1.4 ng/mL (0.0-3.6) Creatine Kinase MB Relative Index 0.4 % (0-4) Phosphorus Level 2.4 mg/dL (2.6-4.7) Magnesium Level 1.7 mg/dL (1.8-2.4) Direct Bilirubin 0.3 mg/dL (0.0-0.2) Laboratory Tests Test 05/24/17 04:00 White Blood Count 3.2 x10^3/uL (4.0-11.0) Red Blood Count 3.72 x10^6/uL (4.30-5.70) Hemoglobin 12.3 g/dL (13.0-17.5) Hematocrit 34.6 % (39.0-53.0) Mean Corpuscular Volume 93 fL (79-100) Mean Corpuscular Hemoglobin 33 pg (25-35) Mean Corpuscular Hemoglobin Concent 36 g/dL (31-37) Red Cell Distribution Width 16.1 % (11.5-14.5) Platelet Count 54 x10^3/uL (140-400) Neutrophils (%) (Auto) 56 % (31-73) Lymphocytes (%) (Auto) 36 % (24-48) Monocytes (%) (Auto) 7 % (0-9) Eosinophils (%) (Auto) 1 % (0-3) Basophils (%) (Auto) 0 % (0-3) Neutrophils # (Auto) 1.8 x10^3uL (1.8-7.7) Lymphocytes # (Auto) 1.2 x10^3/uL (1.0-4.8) Monocytes # (Auto) 0.2 x10^3/uL (0.0-1.1) Eosinophils # (Auto) 0.0 x10^3/uL (0.0-0.7) Basophils # (Auto) 0.0 x10^3/uL (0.0-0.2) Sodium Level 142 mmol/L (136-145) Potassium Level 3.4 mmol/L (3.5-5.1) Chloride Level 108 mmol/L (98-107) Carbon Dioxide Level 27 mmol/L (21-32) Anion Gap 7 (6-14) Blood Urea Nitrogen 8 mg/dL (8-26) Creatinine 0.6 mg/dL (0.7-1.3) Estimated GFR (Cockcroft-Gault) 137.4 Glucose Level 97 mg/dL (70-99) Calcium Level 7.2 mg/dL (8.5-10.1) Phosphorus Level 2.4 mg/dL (2.6-4.7) Magnesium Level 1.7 mg/dL (1.8-2.4) Total Bilirubin 0.9 mg/dL (0.2-1.0) Direct Bilirubin 0.3 mg/dL (0.0-0.2) Aspartate Amino Transf (AST/SGOT) 76 U/L (15-37) Alanine Aminotransferase (ALT/SGPT) 77 U/L (16-63) Alkaline Phosphatase 131 U/L (46-116) Total Protein 6.5 g/dL (6.4-8.2) Albumin 2.8 g/dL (3.4-5.0) Medications Current Medications Famotidine (Pepcid) 20 mg 1X ONCE IVP Last administered on 05/22/17 18:06; Start 05/22/17 at 16:45; Stop 05/22/17 at 16:46; Status DC Sodium Chloride 1,000 ml @ 1,000 mls/hr 1X ONCE IV Last administered on 17:35; Start 05/22/17 at 17:45; Stop 05/22/17 at 18:46; Status DC Ondansetron HCl (Zofran) 4 mg PRN Q8HRS PRN IV NAUSEA/VOMITING; Start 05/22/17 at 18:45; Stop 05/23/17 at 18:44; Status DC Sodium Chloride 1,000 ml @ 150 mls/hr Q6H40M IV Last administered on 19:05; Start 05/22/17 at 18:38; Stop 05/23/17 at 18:37; Status DC Famotidine (Pepcid) 20 mg BID IVP Last administered on 05/23/17 08:45; Start 05/22/17 at 21:00; Stop 05/23/17 at 11:46; Status DC Multivitamins 10 ml/Thiamine HCl 100 mg/Folic Acid 1 mg/Sodium Chloride 1,011.2 ml @ 100 mls/ hr DAILY IV Last administered on 05/24/17 09:06; Start at 19:00; Stop 05/28/17 at 18:59 Folic Acid (Folic Acid) 1 mg DAILY PO Last administered on 05/24/17 09:06; Start 05/23/17 at 09:00 Lorazepam (Ativan) 4 mg PRN Q1HR PRN PO For CIWA 8-14; Start 05/22/17 at 18:45 Lorazepam (Ativan) 2 mg PRN Q1HR PRN IV For CIWA 8-14 Last administered on 05/24 02:17; Start 05/22/17 at 18:45 Lorazepam (Ativan) 4 mg PRN Q1HR PRN IV For CIWA 15 or greater Last administered on 05/22/17 22:08; Start 05/22/17 at 18:45 Haloperidol Lactate (Haldol) 5 mg PRN Q4HRS PRN IVP Hallucinatns,Confusn, Delirium; Start 05/22/17 at 18:45 Diphenhydramine HCl (Benadryl) 25 mg PRN Q15MIN PRN IVP EPS symptoms 2'Haldol admin; Start 05/22/17 at 18:45 Lidocaine (Lidoderm) 1 patch DAILY TD Last administered on 05/24/17 09:11; Start 05/22/17 at 21:30 Tramadol HCl (Ultram) 50 mg PRN Q6HRS PRN PO PAIN Last administered on 23:22; Start 05/22/17 at 21:30 Prednisone (Prednisone) 40 mg 1X ONCE PO Last administered on 05/23/17 08:45 ; Start 05/23/17 at 08:30; Stop 05/23/17 at 08:31; Status DC Famotidine (Pepcid) 20 mg QHS PO Last administered on 05/23/17 20:17; Start at 21:00 Acetaminophen (Tylenol) 650 mg PRN Q6HRS PRN PO FEVER; Start 05/23/17 at 11:45 Ondansetron HCl (Zofran) 4 mg PRN Q6HRS PRN IV NAUSEA/VOMITING; Start 05/23/17 at 11:45 Morphine Sulfate 2 mg PRN Q2HR PRN IV PAIN; Start 05/23/17 at 11:45 Tramadol HCl (Ultram) 50 mg PRN Q6HRS PRN PO PAIN; Start 05/23/17 at 11:45; Stop 05/23/17 at 11:50; Status DC Hydralazine HCl (Apresoline) 10 mg PRN Q4HRS PRN IVP ELEVATED BP, SEE COMMENTS ; Start 05/23/17 at 11:45 Docusate Sodium (Colace) 100 mg PRN DAILY PRN PO CONSTIPATION; Start 05/23/17 at 11:45 Thiamine Mononitrate (Vitamin B-1) 100 mg DAILY PO ; Start 05/28/17 at 09:00 Enoxaparin Sodium (Lovenox 40mg Syringe) 40 mg Q24H SQ ; Start 05/23/17 at 12:00 ; Stop 05/23/17 at 12:00; Status DC Info (Do NOT chart on this placeholder) 0.5 each 1X ONCE MC ; Start 05/24/17 at 09:00; Stop 05/24/17 at 09:01; Status UNV Pneumococcal Polyvalent Vaccine (Do NOT chart on this placeholder) 0.5 each 1X ONCE MC ; Start 05/24/17 at 09:00; Stop 05/24/17 at 09:01; Status UNV Influenza Virus Vaccine Quadrival (Fluarix Quad [id number] Syringe) 0.5 ml ONCE ONCE VAX IM ; Start 05/24/17 at 09:00; Stop 05/24/17 at 09:01; Status DC Pneumococcal Polyvalent Vaccine (Pneumovax 23) 0.5 ml ONCE ONCE VAX IM ; Start 05/24/17 at 09:00; Stop 05/24/17 at 09:01; Status DC Potassium Chloride (Klor-Con) 40 meq 1X ONCE PO Last administered on t 11:47; Start 05/24/17 at 11:15; Stop 05/24/17 at 11:17; Status DC Vitals/I & O Vital Sign - Last 24 Hours 05/23/17 05/23/17 05/23/17 05/23/17 15:00 19:00 20:00 23:00 Temp 98.1 97.9 97.7 98.1 97.9 97.7 Pulse 80 95 54 Resp 18 24 20 B/P (MAP) 110/59 (76) 147/72 (97) 143/78 (99) Pulse Ox 93 91 95 O2 Delivery Room Air Room Air Room Air Room Air 05/23/17 05/24/17 05/24/17 05/24/17 23:22 00:22 03:00 07:00 Temp 97.7 97.2 97.7 97.2 Pulse 60 60 Resp 20 20 20 18 B/P (MAP) 137/70 (92) 121/71 (88) Pulse Ox 93 93 94 97 O2 Delivery Room Air Room Air Room Air Room Air 05/24/17 05/24/17 08:00 11:00 Temp 97.4 97.4 Pulse 60 Resp 22 B/P (MAP) 144/86 (105) Pulse Ox 96 O2 Delivery Room Air Intake and Output 05/24/17 05/24/17 05/25/17 15:00 23:00 07:00 Intake Total 480 ml Output Total 400 ml Balance 80 ml RADHA JEAN-BAPTISTE MD May 24, 2017 13:31
[2017-05-24] MEDS ORDERED: MAGNESIUM SULFATE 2GM 50 ML IV ONE (14:00)
[2017-05-24 15:00] VITALS: BP 132/74
[2017-05-24] MEDS: POTASSIUM PHOSPHATE DIBASIC 10 MMOL in IV NORMAL SALINE 100ML 100 ML IV SCH ×2 (17:07→18:00)
[2017-05-24 19:00] VITALS: BP 143/91
[2017-05-24] MEDS: FAMOTIDINE 20 MG TABLET. PO SCH (20:35)
[2017-05-25 03:00] VITALS: BP 137/78
[2017-05-25] MEDS: MORPHINE SULFATE 2 MG/ML DISP.SYRIN. IV PRN ×2 (03:35→08:37)
[2017-05-25 05:16] LABS: BASO % 0 % (0-3); EOS % 3 % (0-3); HEMOGLOBIN 13.3 g/dL (13.0-17.5); LYMPH # 0.9 x10^3/uL (1.0-4.8); LYMPH % 32 % (24-48); MEAN CORPUSCULAR HEMOGLOBIN 33 pg (25-35); MEAN CORPUSCULAR HGB CONC 36 g/dL (31-37); MEAN CORPUSCULAR VOLUME 92 fL (79-100); MONO % 5 % (0-9); NEUT % 60 % (31-73); PLATELET COUNT 50 x10^3/uL (140-400); RED BLOOD COUNT 4.03 x10^6/uL (4.30-5.70); RED CELL DISTRIBUTION WIDTH 16.1 % (11.5-14.5); WHITE BLOOD COUNT 2.8 x10^3/uL (4.0-11.0)
[2017-05-25 05:36] LABS: CALCIUM 8.2 mg/dL (8.5-10.1); CREATININE 0.5 mg/dL (0.7-1.3); GFR 169.6; MAGNESIUM 1.8 mg/dL (1.8-2.4); PHOSPHORUS 3.5 mg/dL (2.6-4.7); POTASSIUM 3.7 mmol/L (3.5-5.1)
[2017-05-25 07:00] VITALS: BP 145/78
[2017-05-25 07:14] LABS: ALBUMIN 3.1 g/dL (3.4-5.0); DIRECT BILIRUBIN 0.4 mg/dL (0.0-0.2); TOTAL BILIRUBIN 1.2 mg/dL (0.2-1.0); TOTAL PROTEIN 6.7 g/dL (6.4-8.2)
[2017-05-25] MEDS: FOLIC ACID 1 MG TABLET. PO SCH (08:35)
[2017-05-25] MEDS: LIDOCAINE (700MG/PATCH) PATCH. TD SCH (08:47)
[2017-05-25] MEDS: MULTIVIT INFUSN,ADULT 4,VIT K 10 ML, THIAMINE 100 MG, FOLIC ACID 1 MG in IV NORMAL SALI... IV SCH (08:50)
[2017-05-25 11:00] VITALS: BP 134/90
[2017-05-25] MEDS ORDERED: THIA100T22 PO (12:14)
[2017-05-25] MEDS ORDERED: FOLI1TAB16 PO (12:14)
--- NOTE | 2017-05-25 14:42 | PDOC3 ---
Discharge Summary [facility] Date of Admission: May 22, 2017 Discharge Date: May 25, 2017 Admitting Diagnosis Acute abd pain, 2/2 fatty liver, cirrhosis, with alcoholism alcoholism Toxic encephalopathy with ETOH EtOH intoxication and abuse, CIWS protocol for withdrawl elevated Transaminitis 2/2 alcoholic hepatitis likely pancytopenia with alcoholism Problems: CONSULTS gi Brief Hospital Course Mr. Henriquez is a 62 old M, alcoholism came to ER with intoxication, and RUQ pain. He denies drinking daily, but likely very often. He was here 2 years ago for same reason. US abd found likely cirrhosis with portal hypertention. EKG ii MILD st ELevation, repeat EKG, pretty similar to 2015, CE neg add fa, vitb1 pt stable, RUQ pain better, stable to dc. told him to stop ETOH. dc time 35min. General: Alert, Cooperative Heart: Regular rate, Normal S1, Normal S2 Lungs: Clear Abdomen: Normal bowel sounds (tender mid abdomen, muscle wall tender), Soft, Other (RUQ moderate tenderness) Extremities: No clubbing, No edema Skin: No rashes, No significant lesion Problems: Disposition home CONDITION AT DISCHARGE: Improved Diet regular Scheduled Folic Acid (Folic Acid), 1 MG PO DAILY Thiamine Mononitrate (Vitamin B-1), 100 MG PO DAILY Follow Up pcp in 2 weeks RADHA JEAN-BAPTISTE MD May 25, 2017 14:42
[2017-05-25 15:00] VITALS: BP 130/80
[2017-05-26 14:22] LABS: HEP A IGM ABDY Negative (Negative)
[2017-05-28] MEDS ORDERED: THIAMINE 100 MG TABLET. PO SCH (09:00)
== END 2017-05-25 16:50 | disposition home or self-care (01) | DRG 441 ==
LOC: ER 16:39 → 4 NORTH 18:00
PROVIDERS: ADMIT Internal Medicine; ATTEND Internal Medicine
DX: K76.0 Fatty (change of) liver, not elsewhere classified (principal); G92 Toxic encephalopathy; K70.30 Alcoholic cirrhosis of liver without ascites; D61.818 Other pancytopenia; K70.10 Alcoholic hepatitis without ascites; F10.229 Alcohol dependence with intoxication, unspecified; Y90.8 Blood alcohol level of 240 mg/100 ml or more; Z59.0 Homelessness; Z81.1 Family history of alcohol abuse and dependence
CPT/HCPCS: 36415; 71010; 76700; 80048; 80053; 80061; 80074; 80076; 82553; 83735; 84100; 84484; 85025; 85610; 90686; 90732; 93005; G0480; J2060; J2270; J7030; J7060; J7512; S0028; 99285-25

== ENCOUNTER 2017-06-20 18:18 | Emergency (ER) | payer SELFPAY ==
[~2017-06-20 18:18] MED LIST: FOLI1TAB16 PO; THIA100T22 PO
[2017-06-20] MEDS ORDERED: IV NORMAL SALINE 1000ML BAG 1,000 ML IV ONE ×2 (18:45→21:00)
[2017-06-20 19:05] LABS: BASO % 0 % (0-3); EOS % 1 % (0-3); HEMATOCRIT 39.1 % (39.0-53.0); HEMOGLOBIN 13.7 g/dL (13.0-17.5); LYMPH # 2.3 x10^3/uL (1.0-4.8); LYMPH % 42 % (24-48); MEAN CORPUSCULAR HEMOGLOBIN 33 pg (25-35); MEAN CORPUSCULAR HGB CONC 35 g/dL (31-37); MEAN CORPUSCULAR VOLUME 94 fL (79-100); MONO % 9 % (0-9); NEUT % 48 % (31-73); PLATELET COUNT 79 x10^3/uL (140-400); RED BLOOD COUNT 4.18 x10^6/uL (4.30-5.70); RED CELL DISTRIBUTION WIDTH 17.1 % (11.5-14.5); WHITE BLOOD COUNT 5.5 x10^3/uL (4.0-11.0)
[2017-06-20 19:08] LABS: CALCIUM 8.2 mg/dL (8.5-10.1); CREATININE 0.7 mg/dL (0.7-1.3); POTASSIUM 3.8 mmol/L (3.5-5.1)
[2017-06-20 19:13] LABS: ALBUMIN 3.7 g/dL (3.4-5.0); ALBUMIN/GLOBULIN RATIO 0.9 (1.0-1.7); TOTAL BILIRUBIN 2.2 mg/dL (0.2-1.0); TOTAL PROTEIN 7.7 g/dL (6.4-8.2)
--- NOTE | 2017-06-20 21:33 | PHYS DOC ---
Past Medical History Past Medical History: No Pertinent History Additional Past Medical Histor: PT IS POOR HISTORIAN Past Surgical History: No Surgical History Additional Past Surgical Histo: PT IS POOR HISTORIAN Alcohol Use: Heavy Drug Use: None Adult General Chief Complaint Chief Complaint: MEDICAL CLEARANCE HPI HPI Patient is a 62 year old male currently in history of chronic alcoholism well-known to this facility presents with acute alcohol intoxication. [facility] Patient states he is thirsty. Denies any acute symptoms or complaints. History limited due to poor patient Review of Systems Review of Systems ROS as per HPI. Current Medications Current Medications Current Medications Medications (Trade) Dose Ordered Sig/Yamilex Start Time Stop Time Status Last Admin Dose Admin Albuterol/ Ipratropium (Duoneb) 3 ml 1X ONCE 06/20/17 22:45 06/20/17 22:46 DC 06/20/17 22:48 3 ML Famotidine (Pepcid) 20 mg 1X ONCE 06/20/17 23:45 06/20/17 23:46 Sodium Chloride 1,000 ml @ 1,000 mls/hr 1X ONCE 06/20/17 21:00 06/20/17 21:59 DC 06/20/17 20:57 1,000 MLS/HR Allergies Allergies Allergies Coded Allergies Type Severity Reaction Last Updated Verified No Known Drug Allergies 02/03/15 No Physical Exam Physical Exam Constitutional: Well developed, well nourished, no acute distress. [] HENT: Normocephalic, atraumatic, bilateral external ears normal, oropharynx moist, nose normal. [] Eyes: PERRLA, EOMI, conjunctiva injected. [] Neck: Normal range of motion. [] Cardiovascular:Heart rate regular rhythm, no murmur. [] Lungs & Thorax: Bilateral breath sounds clear to auscultation. [] Abdomen: Bowel sounds normal, soft. [] Skin: Warm, dry, no erythema, no rash. [] Back: No tenderness. [] Extremities: No tenderness. [] Neurologic: Alert and oriented X 3, normal motor function, normal sensory function, no focal deficits noted. [] Psychologic: Affect normal, judgement normal, mood normal. [] Current Patient Data Vital Signs Vital Signs Date Time Temp Pulse Resp B/P (MAP) Pulse Ox O2 Delivery O2 Flow Rate FiO2 10/20/17 23:10 89 16 135/72 (93) 94 Room Air 06/20/17 18:18 98.5 98.5 Lab Values Laboratory Tests Test 06/20/17 18:40 White Blood Count 5.5 x10^3/uL (4.0-11.0) Red Blood Count 4.18 x10^6/uL (4.30-5.70) L Hemoglobin 13.7 g/dL (13.0-17.5) Hematocrit 39.1 % (39.0-53.0) Mean Corpuscular Volume 94 fL (79-100) Mean Corpuscular Hemoglobin 33 pg (25-35) Mean Corpuscular Hemoglobin Concent 35 g/dL (31-37) Red Cell Distribution Width 17.1 % (11.5-14.5) H Platelet Count 79 x10^3/uL (140-400) L Neutrophils (%) (Auto) 48 % (31-73) Lymphocytes (%) (Auto) 42 % (24-48) Monocytes (%) (Auto) 9 % (0-9) Eosinophils (%) (Auto) 1 % (0-3) Basophils (%) (Auto) 0 % (0-3) Neutrophils # (Auto) 2.6 x10^3uL (1.8-7.7) Lymphocytes # (Auto) 2.3 x10^3/uL (1.0-4.8) Monocytes # (Auto) 0.5 x10^3/uL (0.0-1.1) Eosinophils # (Auto) 0.1 x10^3/uL (0.0-0.7) Basophils # (Auto) 0.0 x10^3/uL (0.0-0.2) Sodium Level 140 mmol/L (136-145) Potassium Level 3.8 mmol/L (3.5-5.1) Chloride Level 98 mmol/L (98-107) Carbon Dioxide Level 28 mmol/L (21-32) Anion Gap 14 (6-14) Blood Urea Nitrogen 12 mg/dL (8-26) Creatinine 0.7 mg/dL (0.7-1.3) Estimated GFR (Cockcroft-Gault) 115.0 BUN/Creatinine Ratio 17 (6-20) Glucose Level 108 mg/dL (70-99) H Calcium Level 8.2 mg/dL (8.5-10.1) L Total Bilirubin 2.2 mg/dL (0.2-1.0) H Aspartate Amino Transferase (AST) 320 U/L (15-37) H Alanine Aminotransferase (ALT) 143 U/L (16-63) H Alkaline Phosphatase 104 U/L (46-116) Total Protein 7.7 g/dL (6.4-8.2) Albumin 3.7 g/dL (3.4-5.0) Albumin/Globulin Ratio 0.9 (1.0-1.7) L Laboratory Tests 06/20/17 18:40 Laboratory Tests 06/20/17 18:40 EKG EKG [EKG: sinus tach, rate 102, no acute ST-T wave changes. ] Radiology/Procedures Radiology/Procedures [Chest x-ray: No acute cardiopulmonary disease.] Course & Med Decision Making Course & Med Decision Making Pertinent Labs and Imaging studies reviewed. (See chart for details) [Patient intoxicated. Patient observed in the emergency department until exhibited clinical improvement and is able to walk with steady gait. Patient is at high risk with a of alcohol withdrawal withdrawal seizures and DT upon discharge from the emergency department. Patient also given Pepcid for alcoholic gastritis. Abdomen soft, nonsurgical. Patient is discharged in stable condition to place custody but will require intensive medical monitor at correctional facility. principal gifts officer with the patient states facility is capable of providing medical care. Patient is discharged to custody of correctional office.] Dragon Disclaimer Dragon Disclaimer This electronic medical record was generated, in whole or in part, using a voice recognition dictation system. Departure Departure Impression: Primary Impression: Acute alcohol intoxication Disposition: 05 TRANSFER OTHER Condition: STABLE Referrals: NO PCP (PCP) Patient Instructions: Alcohol Intoxication, [id number] Additional Instructions: Patient is a high risk for alcohol withdrawal seizures and delirium tremens and requires intensive 24 hour medical monitoring while in custody for several days while in the window for alcohol withdrawal complications. SAM AMARO DO Jun 20, 2017 21:33
[2017-06-20] MEDS ORDERED: IPRATRPIUM/ALBUTEROL 0.5/2.5MG 3 ML NEBU. NEB ONE (22:45)
[2017-06-20 23:38] VITALS: BP 133/73
[2017-06-20] MEDS ORDERED: FAMOTIDINE 20 MG/2 ML VIAL IVP ONE (23:45)
--- NOTE | 2017-06-21 09:05 | RAD ---
AP portable chest radiograph 06/20/2017 Clinical History: Shortness of breath throughout the day. An AP portable erect digital radiograph of the chest was obtained. Comparison study is dated 06/12/2017. The cardiac silhouette is mildly enlarged. The thoracic aorta is mildly tortuous. Elevation of the right hemidiaphragm is seen. Prominence of the pulmonary vasculature is noted suggesting mild CHF. No area of consolidation is seen. No pneumothorax or significant pleural effusion is seen. The osseous structures are unchanged. Impression: Prominence of the pulmonary vasculature is seen suggesting mild CHF. Clinical correlation is recommended.
--- NOTE | 2017-06-21 12:19 | EKG ---
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
== END 2017-06-21 00:16 | disposition home or self-care (01) ==
LOC: ER 18:18
DX: F10.129 Alcohol abuse with intoxication, unspecified (principal)
CPT/HCPCS: 36415; 71010; 80053; 85025; 93005; 96361; 96374; 99285; J7030; J7620; S0028